=== PATIENT | male | born 1995 | race Two or more races ===

== ENCOUNTER 2018-04-15 17:30 | Emergency (ER) | payer OTHER ==
[~2018-04-15] VITALS: Ht 167.6 cm; Wt 101.2 kg
[2018-04-15 17:33] VITALS: BP 128/76
[2018-04-15] MEDS ORDERED: Methocarbamol 500mg tab ORAL ONE (17:45)
[2018-04-15] MEDS ORDERED: Ketorolac 30mg Inj IM ONE (17:45)
[2018-04-15] MEDS ORDERED: IBUPROFEN600 MG ORAL (17:53)
[2018-04-15] MEDS ORDERED: ROBAXIN500 MG PO (17:53)
[2018-04-15] MEDS ORDERED: LIDOCAINE700 M1 TP (17:53)
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
[2018-04-15 18:02] VITALS: BP 128/76
== END 2018-04-15 18:03 | disposition home or self-care (01) ==
LOC: EMR 17:52
DX: M54.9 Dorsalgia, unspecified (principal); V43.62XA Car passenger injured in collision with other type car in traffic accident, initial encounter; Y92.410 Unspecified street and highway as the place of occurrence of the external cause
CPT/HCPCS: 96372; 99283; J1885